=== PATIENT | male | born 1995 | race Two or more races ===

== ENCOUNTER 2018-09-13 23:23 | Emergency (ER) | payer OTHER ==
[~2018-09-13] VITALS: Ht 170.2 cm; Wt 68.0 kg
[2018-09-13 23:17] VITALS: BP 130/82
--- NOTE | 2018-09-13 23:21 | NUR ---
ED Nurse Note: pt was brought in by [facility] 8 from [facility] c/o alcohol intoxication. pt presents with nausea and with hands to face. pt denies and abdominal pain nor urgency to vomit. pt neuro check is within normal limits, pt is alert and oriented times 4. pt cardiac assesment is within normal limits, S1 and S2 noted, with cap refill on all extremities >3. pt respritory assesment is within normal limits, with lung sounds clear on all lobes and quadrants, no adventitious sounds noted.
--- NOTE | 2018-09-14 00:10 | Emergency Room Report ---
History of Present Illness General Chief Complaint: Alcohol Intoxication Source: EMS Present Illness HPI Is a 23-year-old male brought in by EMS for alcohol intoxication. He was found behind a bar with vomiting and altered mental status. There was no trauma. Patient admit to drinking. Denies any drug use but no other complaint. History is limited because of patient intoxication. Allergies: Coded Allergies: UNABLE TO ASSESS (Unverified , 09/13/18) Patient History Past Medical History: see triage record, old chart reviewed Past Surgical History: none Pertinent Family History: none Social History: Reports: alcohol use Immunizations: other Reviewed Nursing Documentation: PMH: Agreed; PSxH: Agreed Nursing Documentation-PMH Past Medical History: Deferred Review of Systems All Other Systems: limited - Secondary to intoxication Physical Exam Vital Signs Date Time Temp Pulse Resp B/P (MAP) Pulse Ox O2 Delivery O2 Flow Rate FiO2 09/13/18 23:08 97.3 96 16 130/82 100 Room Air 09/13/18 23:17 99 vitals normal Sp02 EP Interpretation: reviewed, normal General Appearance: well appearing, no apparent distress, other - Intoxicated Head: normocephalic, atraumatic Eyes: bilateral eye PERRL, bilateral eye EOMI ENT: hearing grossly normal, normal pharynx Neck: full range of motion, supple, no meningismus Respiratory: chest non-tender, lungs clear, normal breath sounds Cardiovascular #1: regular rate, rhythm, no murmur Gastrointestinal: normal bowel sounds, non tender, no mass, no organomegaly, no bruit, non-distended Musculoskeletal: back normal, gait/station normal, normal range of motion Psychiatric: mood/affect normal Skin: warm/dry Medical Decision Making Diagnostic Impression: Primary Impression: Acute alcoholic intoxication Qualified Codes: F10.920 - Alcohol use, unspecified with intoxication, uncomplicated ER Course Patient with alcohol intoxication. No trauma to warrant CT scan or x-ray. We' ll discharge home once clinically sober. Last Vital Signs Date Time Temp Pulse Resp B/P (MAP) Pulse Ox O2 Delivery O2 Flow Rate FiO2 09/13/18 23:17 96 16 Room Air 99 09/13/18 23:17 97.3 130/82 100 Status: improved Disposition: HOME, SELF-CARE Condition: Stable Scripts Unable to Obtain Active Prescriptions or Reported Meds Patient Instructions: Alcohol Intoxication, [id number] Additional Instructions: Abstain from drinking to excess. Follow-up with your doctor in 7 days. Return if worse. Jace Crouch MD Sep 14, 2018 00:10
--- NOTE | 2018-09-14 00:30 | NUR ---
ED Nurse Note: Received report from Mark/CHRISTI. Pt is A/LEOBARDO 3. VSS. Waiting for d/c.
[2018-09-14 05:32] VITALS: BP 116/81
--- NOTE | 2018-09-14 05:32 | NUR ---
ER DISCHARGE NOTE: Patient is cleared to be discharged per Dr. Crouch. Pt is A/O x4 on room air with stable vital signs. Pt was given dc and prescription instructions, pt was able to verbalize understanding, pt id band and IV removed . pt is able to ambulate with steady gait, pt took all belongings.
== END 2018-09-14 05:32 | disposition home or self-care (01) ==
LOC: EDBD 23:23 → EMR 23:55
DX: F10.120 Alcohol abuse with intoxication, uncomplicated (principal)
CPT/HCPCS: 36415; 80329; 96361; 96374; 99284; J2405

== ENCOUNTER 2020-08-20 04:47 | Emergency (ER) | payer SELFPAY ==
[~2020-08-20] VITALS: Ht 175.3 cm; Wt 65.8 kg
[2020-08-20 05:02] VITALS: BP 138/84
--- NOTE | 2020-08-20 05:02 | NUR ---
ED Nurse Note: Pt placed in Ortho. Pt walked into ED from home c/o boil on right lower back and left buttock, started 1 week ago and popped in the shower 5 days ago. Pt now c/o pain 04/17.
--- NOTE | 2020-08-20 05:20 | NUR ---
ED Nurse Note: EDMD at bedside performing ID.
[2020-08-20] MEDS ORDERED: CLINDAMYCIN HC300 MG ORAL (05:25)
--- NOTE | 2020-08-20 05:26 | Emergency Room Report ---
History of Present Illness General Chief Complaint: Skin Rash/Abscess Source: Patient Present Illness HPI This is a 25-year-old male who get recurrent cutaneous abscesses. He presents with 1 just above his right buttock area. Pain is 10 out of 10. Is been ongoing for about a week. This morning it drained a small amount of urine in the shower. No fever chills but no nausea no vomiting. He denies any other complaint. Allergies: Coded Allergies: SULFA (SULFONAMIDE ANTIBIOTICS) (Verified Allergy, Unknown, 08/20/20) COVID-19 Screening Contact w/high risk pt: No Experienced COVID-19 symptoms?: No COVID-19 Testing performed AERONAUTICAL INSPECTOR: No Patient History Past Medical History: see triage record, old chart reviewed Past Surgical History: none Pertinent Family History: none Social History: Denies: smoking Immunizations: other Reviewed Nursing Documentation: PMH: Agreed; PSxH: Agreed Nursing Documentation-PMH Past Medical History: No Stated History Review of Systems Eye: Denies: eye pain, blurred vision ENT: Denies: ear pain, nose congestion, throat swelling Respiratory: Denies: cough, shortness of breath Cardiovascular: Denies: chest pain, palpitations Gastrointestinal: Denies: abdominal pain, diarrhea, nausea, vomiting Musculoskeletal: Denies: back pain, joint pain Skin: Denies: rash Neurological: Denies: headache, numbness Endocrine: Denies: increased thirst, increased urine Hematologic/Lymphatic: Denies: easy bruising All Other Systems: negative except mentioned in HPI Physical Exam Vital Signs Date Time Temp Pulse Resp B/P (MAP) Pulse Ox O2 Delivery O2 Flow Rate FiO2 08/20/20 04:54 99.0 121 18 138/84 (102) 100 Room Air Vitals with tachycardia Sp02 EP Interpretation: reviewed, normal General Appearance: well appearing, no apparent distress, alert Head: normocephalic, atraumatic Eyes: bilateral eye PERRL, bilateral eye EOMI ENT: hearing grossly normal, normal pharynx Neck: full range of motion, supple, no meningismus Respiratory: chest non-tender, lungs clear, normal breath sounds Cardiovascular #1: regular rate, rhythm, no murmur Gastrointestinal: normal bowel sounds, non tender, no mass, no organomegaly, no bruit, non-distended Musculoskeletal: back normal, normal range of motion, gait/station normal, other - Right lower back just above the buttock, there is an indurated area of 4 cm. Tender to palpation. Psychiatric: mood/affect normal Procedures Incision and Drainage Incision and Drainage : Consent: Verbal Site: Right lower back/buttock Blade Size: 11 I & D Procedure: betadine prep Wound Location: back Anesthesia: 1% Lidocaine Volume Anesthetic (ccs): 7 Patient Tolerated: Well Complications: None Progress Area cleaned with Betadine. Local anesthetic with 1% lidocaine without epinephrine. I made a 2 cm incision. There was copious amount of pus expressed . Loculated area broken up. Wound irrigated. Patient tolerated procedure without any problem. Medical Decision Making Diagnostic Impression: Primary Impression: Abscess ER Course This patient presents with an abscess. Most likely MRSA. Will discharge home. Last Vital Signs Date Time Temp Pulse Resp B/P (MAP) Pulse Ox O2 Delivery O2 Flow Rate FiO2 08/20/20 05:02 98.9 121 18 138/84 100 Room Air Status: improved Disposition: HOME, SELF-CARE Condition: Stable Scripts Clindamycin Hcl (CLINDAMYCIN HCL) 300 Mg Capsule 300 MG ORAL THREE TIMES A DAY, #21 CAP Prov: Jace Crouch MD 08/20/20 Referrals: NOT CHOSEN IPA/,REFERRING (PCP) Patient Instructions: Abscess Additional Instructions: Follow-up in 2 to 3 days for recheck. Either with your primary care doctor or come back here. Return if symptoms worsen. Keep wound clean. Clean first with hydroperoxide and apply antibiotic ointment. Jace Crouch MD Aug 20, 2020 05:26
[2020-08-20 05:32] VITALS: BP 134/81
--- NOTE | 2020-08-20 05:32 | NUR ---
ER DISCHARGE NOTE: Patient is cleared to be discharged per ERMD, pt is aox4, on room air, with stable vital signs. Wound dressing applied by EDMD. Pt was given dc paperwork with wound care instructions, paper prescriptions for ABX, pt was able to verbalize understanding, pt id band removed. pt is able to ambulate with steady gait. pt took all belongings.
== END 2020-08-20 05:32 | disposition home or self-care (01) ==
LOC: EMR 05:05
DX: L02.212 Cutaneous abscess of back [any part, except buttock and flank] (principal); Z88.2 Allergy status to sulfonamides
CPT/HCPCS: 10060; 99282